=== PATIENT | female | born 1935 | race Asian ===

== ENCOUNTER 2023-11-26 08:55 | Outpatient (CLI) | payer MEDICARE, OTHER | END 2023-11-26 08:56 | disposition home or self-care (01) | LOC: MADPT 08:55 | PROVIDERS: ATTEND Family Medicine | DX: R53.81 Other malaise (principal) ==

== ENCOUNTER 2024-04-24 15:34 | Emergency (ER) | payer MEDICARE, OTHER | END 2024-04-24 17:52 | disposition home or self-care (01) | LOC: EDSEX → MADERS 15:34 | DX: S82.832A Other fracture of upper and lower end of left fibula, initial encounter for closed fracture (principal); M21.372 Foot drop, left foot; W19.XXXA Unspecified fall, initial encounter | CPT/HCPCS: 99283 ==